=== PATIENT | female | born 1940 | race Two or more races ===

== ENCOUNTER 2020-05-02 16:51 | Emergency (ER) | payer OTHER ==
[~2020-05-02] VITALS: Ht 162.6 cm; Wt 78.5 kg
--- NOTE | 2020-05-02 17:00 | NUR ---
[email or web address] from home, had syncopal episode, assisted to the ground by son BS [id number]. Patient a/ox4, breathing even and unlabored, no sob noted, needs attended, kept comfortable. Attached to the diagnostic cardiac sonographer.
[2020-05-02] MEDS: IV NS 0.9% 1,000 ML BAG IV ONE (17:24)
--- NOTE | 2020-05-02 17:47 | NUR ---
PATIENT RESTING, NO DISTRESS NOTED.
--- NOTE | 2020-05-02 17:59 | NUR ---
PATIENT TAKEN TO CT.
[2020-05-02 18:18] LABS: ALBUMIN 3.3 g/dL (3.4-5.0); BILIRUBIN,DIRECT 0.2 mg/dL (0.0-0.2); BILIRUBIN,TOTAL 0.5 mg/dL (0.2-1.0); CALCIUM, SERUM 8.5 mg/dL (8.5-10.1); CREATININE 1.2 mg/dL (0.6-1.3); POTASSIUM 3.2 mmol/L (3.5-5.1); TOTAL PROTEIN, SERUM 6.5 g/dL (6.4-8.2)
[2020-05-02] MEDS ORDERED: ACETAMINOPHEN ES 500 MG TABLET ONE (18:50)
--- NOTE | 2020-05-02 19:13 | NUR ---
COVID ANTIGEN SWAB DONE.
[2020-05-02] MEDS: ACETAMINOPHEN ES 500 MG TABLET PO ONE (19:16)
--- NOTE | 2020-05-02 19:16 | NUR ---
PT C/O HEADACHE, TYLENOL GIVEN.
[2020-05-02 19:20] LABS: BASOPHILS % (AUTO) 0.4 % (0.0-2.0); EOSINOPHILS % (AUTO) 0.1 % (0.0-6.0); HEMATOCRIT 34 % (33-45); HEMOGLOBIN 11.3 g/dL (11.5-14.8); LYMPHOCYTES # (AUTO) 0.5 /CMM (0.8-4.8); LYMPHOCYTES % (AUTO) 13.9 % (20.0-44.0); MEAN CORPUSCULAR HGB CONC 34 g/dl (31.0-36.0); MEAN CORPUSCULAR VOLUME 94 fL (82-100); MONOCYTES # (AUTO) 0.6 /CMM (0.1-1.30); MONOCYTES % (AUTO) 16.4 % (2.0-12.0); NEUTROPHILS # (AUTO) 2.3 /CMM (1.8-8.9); NEUTROPHILS % (AUTO) 69.2 % (43.0-81.0); PLATELET COUNT (AUTO) 144 /CMM (150-450); RED BLOOD CELL COUNT(AUTO) 3.58 MIL/uL (4.0-5.2); WHITE BLOOD COUNT (AUTO) 3.4 K/uL (4.3-11.0)
--- NOTE | 2020-05-02 19:51 | NUR ---
[facility] CALLED PER DR MORALES.
[2020-05-02] MEDS ORDERED: ASPIRIN EC 81 MG TABLET.DR PO ONE (20:07)
[2020-05-02] MEDS ORDERED: POTASSIUM CHLORIDE 20 MEQ TAB.PRT.SR PO ONE (20:08)
[2020-05-02] MEDS: ASPIRIN EC 81 MG TABLET.DR PO ONE (20:11)
[2020-05-02] MEDS: POTASSIUM CHLORIDE 20 MEQ TAB.PRT.SR PO ONE (20:11)
--- NOTE | 2020-05-02 20:26 | NUR ---
[facility] CALLED REGARDING POSITIVE COVID RESULT.
--- NOTE | 2020-05-02 20:26 | NUR ---
[facility] CONTACTED REGARDING COVID 19 RESULT
[2020-05-02 20:36] VITALS: BP 124/79
--- NOTE | 2020-05-02 20:38 | NUR ---
PT ACCEPTED AT [facility] ACCEPTING MD CESPEDES PHONE# FOR REPORT ALS TRANSPORT PRN [phone].
--- NOTE | 2020-05-02 20:42 | NUR ---
REPORT GIVEN TO [facility]
[2020-05-02 20:51] LABS: BAND % (MANUAL) 4 % (0.0-5.0); EOSINOPHILS % (MANUAL) 1 % (0-4); LYMPHOCYTES % (MANUAL) 15 % (16-48); MONOCYTES % (MANUAL) 13 % (0-11.0); NEUTROPHILS % (MANUAL) 67 (42-76)
--- NOTE | 2020-05-02 22:22 | NUR ---
REPORT GIVEN TO EMS. PT STABLE FOR TRANSFER
--- NOTE | 2020-05-13 17:22 | NUR ---
result faxed to [phone], attn to Miranda MARCOS
== END 2020-05-02 22:24 | disposition short-term general hospital (02) ==
LOC: ER 17:00
DX: I21.4 Non-ST elevation (NSTEMI) myocardial infarction (principal); U07.1 COVID-19; E66.9 Obesity, unspecified; E87.6 Hypokalemia
CPT/HCPCS: 36415; 70450; 71045; 80048; 80076; 84484; 84703; 85007; 85025; 85730; 87081; 87426; 93005; 96360; 99285; C9803; J7030